=== PATIENT | female | born 1965 | race Caucasian/White ===

== ENCOUNTER 2016-12-24 05:06 | Inpatient (IN) | payer BC, OTHER ==
[2016-12-17 11:11] VITALS: BMI 23.4
--- NOTE | 2016-12-24 10:46 | HP ---
Past Medical History - Primary Care Physician PCP:: Sudhir Franks - Admission Chief Complaint: uterovaginalprolapse, menorrhagia.anemia History of Present Illness: 51 yo f with hx of prolonged menses and pelvic pain and uterovaginal prolapse admitted for vaginal hysterectomy, A.P repair.no urinary incontinence, RBA discussed with patient History Source: Patient Limitations to Obtaining History: No Limitations - Past Medical History Renal/: No: Renal Calculi (stone passed) Heme/Onc: Yes: Anemia Psych: Yes: Anxiety - Past Surgical History Hx Myomectomy: No Hx Transabdominal Cerclage: No Additional Surgical History: D&C for menorrhagia - Smoking History Smoking history: Never smoked Have you smoked in the past 12 months: No - Alcohol/Substance Use Hx Alcohol Use: No - Social History Usual Living Arrangement: Yes: With Spouse History of Recent Travel: No Home Medications - Allergies Allergies/Adverse Reactions: Allergies Allergy/AdvReac Type Severity Reaction Status Date / Time No Known Drug Allergies Allergy Verified 12/24/16 08:43 - Home Medications Home Medications: Ambulatory Orders Calcium Carbonate [Tums] 200 mg PO PRN PRN 12/17/16 Review of Systems - Review of Systems Constitutional: reports: No Symptoms Eyes: reports: No Symptoms HENT: reports: No Symptoms Neck: reports: No Symptoms Cardiovascular: reports: No Symptoms Respiratory: reports: No Symptoms Gastrointestinal: reports: No Symptoms Genitourinary: reports: Frequency, Urgency Breasts: reports: No Symptoms Reported Musculoskeletal: reports: No Symptoms Integumentary: reports: No Symptoms Neurological: reports: No Symptoms Endocrine: reports: No Symptoms Hematology/Lymphatic: reports: No Symptoms Psychiatric: reports: No Symptoms, Anxiety 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: Vital Signs Temperature 98.4 F 12/24/16 08:37 Pulse Rate 100 H 12/24/16 08:37 Respiratory Rate 16 12/24/16 08:37 Blood Pressure 131/84 12/24/16 08:37 O2 Sat by Pulse Oximetry (%) 100 12/24/16 08:35 Constitutional: Yes: Well Nourished, No Distress, Calm Eyes: Yes: WNL, Conjunctiva Clear, EOM Intact HENT: Yes: WNL, Atraumatic, Normocephalic Neck: Yes: WNL, Supple, Trachea Midline Cardiovascular: Yes: WNL, Regular Rate and Rhythm Respiratory: Yes: WNL, Regular, CTA Bilaterally Gastrointestinal: Yes: WNL ...Rectal Exam: Yes: WNL Renal/: Yes: WNL External Genitalia: Yes: Normal Internal Exam Deferred: No Vaginal Exam: Yes: Normal (cystocele) Cervix: Yes: Other (at vagiinal interetous) Uterus: Yes: Other (prolapsed, bulky) Adnexa: Not Palpable: Left, Right Breast(s): Yes: WNL Musculoskeletal: Yes: WNL Extremities: Yes: WNL Edema: No Integumentary: Yes: WNL Neurological: Yes: WNL, Alert, Oriented ...Motor Strength: WNL Psychiatric: Yes: WNL, Alert, Oriented Problem List - Problem (1) Uterovaginal prolapse Code(s): N81.4 - UTEROVAGINAL PROLAPSE, UNSPECIFIED (2) Menorrhagia Code(s): N92.0 - EXCESSIVE AND FREQUENT MENSTRUATION WITH REGULAR CYCLE Qualifiers: Menorrahagia type: with regular cycle Qualified Code(s): N92.0 - Excessive and frequent menstruation with regular cycle (3) Anemia Code(s): D64.9 - ANEMIA, UNSPECIFIED Qualifiers: Anemia type: iron deficiency Assessment/Plan vaginal hysterectomy , possible anterior, posterior repair
[2016-12-24] MEDS ORDERED: VASOPRESSIN 20 UNITS/ML VIAL IV ONE (10:55)
[2016-12-24] MEDS ORDERED: MIDAZOLAM HCL 2 MG/2 ML SINGLE DOSE VIAL ONE (11:02)
[2016-12-24] MEDS ORDERED: ROCURONIUM BROMIDE 50 MG/5 ML VIAL ONE (11:02)
[2016-12-24] MEDS ORDERED: LIDOCAINE HCL/PF 2% SDV 5ML VIAL ONE (11:02)
[2016-12-24] MEDS ORDERED: ceFAZolin SODIUM 1 GM VIAL IVPB ONE (11:23)
[2016-12-24] MEDS ORDERED: PROPOFOL 20 ML ONE (11:42)
[2016-12-24] MEDS ORDERED: NEOSTIGMINE METHYLSULFATE 0.5 MG/ML - 10 ML MDV ONE (11:44)
[2016-12-24] MEDS ORDERED: SUCCINYLCHOLINE CHLORIDE 200 MG/10 ML VIAL ONE (11:46)
[2016-12-24] MEDS ORDERED: metroNIDAZOLE 0.75% VAGINAL GEL 70 GM TUBE ONE (12:38)
[2016-12-24] MEDS ORDERED: ONDANSETRON 4 MG/2 ML VIAL IVPB PRN (12:57)
[2016-12-24] MEDS ORDERED: IBUPROFEN 800 MG/8 ML IJ IVPB PRN (12:57)
[2016-12-24] MEDS ORDERED: HYDROmorphone HCL CARPU-JECT 2 MG/1 ML DISP.SYRIN IVPUSH ONE ×4 (13:25→15:05)
[2016-12-24] MEDS ORDERED: HYDROmorphone HCL CARPU-JECT 2 MG/1 ML DISP.SYRIN ONE ×2 (13:27→15:03)
[2016-12-24] MEDS ORDERED: HYDROmorphone HCL CARPU-JECT 1 MG/1 ML DISP.SYRIN IVPUSH PRN (13:36)
[2016-12-24] MEDS: ELECTROLYTE-148 SOLN 1,000 ML IV SCH ×2 (16:14→21:10)
[2016-12-24] MEDS: CEFAZOLIN 1 GM in DEXTROSE 5%-WATER - 50 ML IVPB SCH (18:42)
[2016-12-24] MEDS: oxyCODONE HCL 5 MG TABLET PO PRN (18:46)
[2016-12-24] MEDS: IBUPROFEN 600 MG TABLET (FP) PO PRN (18:48)
[2016-12-25] MEDS: CEFAZOLIN 1 GM in DEXTROSE 5%-WATER - 50 ML IVPB SCH ×2 (01:01→10:33)
[2016-12-25] MEDS: oxyCODONE HCL 5 MG TABLET PO PRN ×4 (01:03→20:36)
[2016-12-25] MEDS: IBUPROFEN 600 MG TABLET (FP) PO PRN (01:04)
[2016-12-25] MEDS: ELECTROLYTE-148 SOLN 1,000 ML IV SCH (06:15)
[2016-12-25 06:51] LABS: MCH 21.9 pg (25.7-33.7); MCHC 30.6 g/dl (32.0-36.0); MEAN CELL VOLUME 71.4 fl (80-96); MEAN PLT VOLUME 9.6 fl (7.5-11.1); PLATELET COUNT 213 K/MM3 (134-434); RDW 17.7 % (11.6-15.6); WHITE BLOOD COUNT 12.7 K/mm3 (4.0-10.0)
--- NOTE | 2016-12-25 08:37 | PN ---
Progress Note (short form) - Note Progress Note: ANESTHESIOLOGY POST-OP CHECK 51F vaginal hysterectomy and perineoplasty under general anesthesia, POD #1. No acute complaints, pain 6/10 and tolerable. Denies N/V, tolerating PO. Not yet OOB, iyer out this am. Vital Signs Temperature 98.1 F 12/25/16 05:30 Pulse Rate 82 12/25/16 05:30 Respiratory Rate 14 12/25/16 05:30 Blood Pressure 100/57 12/25/16 05:30 O2 Sat by Pulse Oximetry (%) 99 12/24/16 21:00 Active Medications Enoxaparin Sodium (Lovenox -) 30 mg SQ DAILY SABINA Fentanyl (Sublimaze Injection -) 25 mcg IVPUSH [id number] PRN PRN Reason: PAIN Stop: 12/27/16 13:37 Hydromorphone HCl (Dilaudid Injection -) 1 mg IVPUSH [id number] PRN PRN Reason: PAIN Stop: 12/27/16 13:37 Parenteral Electrolytes (Plasma-Lyte 148 -) 1,000 mls @ 125 mls/hr IV ASDIR SABINA Last Admin: 12/25/16 06:15 Dose: 125 mls/hr Cefazolin Sodium 1 gm/ (Dextrose) 50 mls @ 100 mls/hr IVPB Q8H-IV SABINA Stop: 12/25/16 17:59 Last Admin: 12/25/16 01:01 Dose: 100 mls/hr Ibuprofen (Motrin -) 600 mg PO Q6H PRN PRN Reason: FEVER Last Admin: 12/25/16 01:04 Dose: 600 mg Ibuprofen (Caldolor Injection -) 800 mg IVPB Q6H PRN PRN Reason: FEVER Ondansetron HCl (Zofran Injection) 4 mg IVPB Q6H PRN PRN Reason: NAUSEA Oxycodone HCl (Roxicodone -) 5 mg PO Q4H PRN PRN Reason: PAIN LEVEL 1-5 Last Admin: 12/25/16 08:24 Dose: 5 mg Gen: awake, alert No apparent anesthesia complications. Pain well controlled. Continue management as per primary team.
[2016-12-25] MEDS ORDERED: ENOXAPARIN NA (PORCINE) 30 MG/0.3 ML DISP.SYRIN SQ SCH (10:00)
--- NOTE | 2016-12-25 12:01 | OP ---
DATE OF OPERATION: 12/24/2016 PREOPERATIVE DIAGNOSES: Uterovaginal prolapse, menorrhagia, and anemia. POSTOPERATIVE DIAGNOSES: Uterovaginal prolapse, menorrhagia, and anemia. PROCEDURE: Vaginal hysterectomy, anterior and posterior repair, and perineoplasty. SURGEON: Sudhir Franks MD ASSEMBLER SURGICAL GARMENT: Hiro Torrez MD ANESTHESIA: General. ESTIMATED BLOOD LOSS: 150 mL DESCRIPTION OF OPERATION: The patient was taken to the operating room, had adequate general anesthesia. In dorsal lithotomy position, examination under anesthesia revealed the introitus was gaping. There was a cystocele and rectocele and then second-degree uterine prolapse. Uterus was slightly prominent. Adnexa: No masses were palpable. With a weighted speculum in the vagina, anterior and posterior lip of the cervix was grasped with 2 single-tooth tenaculums. Anterior vaginal mucosa and posterior was infiltrated with a diluted solution of vasopressin. A circumferential incision was made around the cervix. Anterior vaginal mucosa was dissected with blunt and sharp dissection with Metzenbaum scissors, and the bladder was from the uterus and pushed up. The posterior vaginal mucosa was from the cervix, and cul-de-sac was entered with Mccoy scissors. A weighted speculum was advanced into the cul-de-sac. Bladder was lifted. Uterosacral ligament was identified bilaterally, clamped with Bernarda clamp, cut, and the clamp replaced with 0 Vicryl suture bilaterally. These clamps were held. The bladder was dissected further, and anterior peritoneum was opened and then entered. Bladder was lifted and uterine artery was identified bilaterally, clamped, and cut, and the clamp replaced with 0 Vicryl suture bilaterally. Parametrial area was cauterized with LigaSure cautery and cut until the upper ligament was reached. Upper ligament was grasped with the bipolar LigaSure cautery, cauterized, and cut bilaterally, and the uterus was removed. The right and left tube were removed by cauterizing along the mesosalpinx, and both tubes were removed. Both ovaries appeared to be normal. The peritoneum was closed with a pursestring of 0 Vicryl suture, and anterior repair started with infiltrating anterior vaginal mucosa. Both vaginal mucosa was grasped with an Allis clamp and then undermined with Metzenbaum scissors. The bladder was from the vaginal mucosa. Cystocele was repaired with interrupted suture of 3-0 Vicryl. The excess vaginal mucosa was cut and the vaginal mucosa was brought together with interrupted suture of 3-0 Vicryl. Uterosacral ligaments were fixed to the vaginal angle with 0 Vicryl ligature suture. The posterior repair started by removing the excess perineal skin, and the posterior vaginal mucosa was undermined with Metzenbaum scissors and from the rectum. Excess vaginal mucosa was cut, and the rectocele repair with interrupted suture of 3-0 Vicryl. The muscles were brought together with interrupted suture of 0 Vicryl. Perineoplasty was done by approximating the perineal muscle, and the vaginal mucosa and posterior perineum were repaired in episiotomy-like fashion. The skin was closed with 3-0 Vicryl interrupted suture. The vagina was packed with Iodoform gauze. No active bleeding was seen. The Woodson was inserted. Clear urine. Patient tolerated the procedure well, left the OR in good condition. Razia [id number]
--- NOTE | 2016-12-25 22:46 | PN ---
Progress Note (short form) - Note Progress Note: pod 1 s/p vag .hysterectomy, ap repair sitting on chair, doing well no dizziness, no vaginal bleeding CBC, BMP 12/25/16 05:45 Last Vital Signs Temp Pulse Resp BP Pulse Ox 99.1 F 102 H 19 138/70 99 12/25/16 18:00 12/25/16 18:00 12/25/16 18:00 12/25/16 18:00 12/24/16 21:00 abdomen soft , no distension, no cva vagina no bleeding, vaginal packing removed no calf tenderness pod 1 anemia, asymptomatic afebrile plan observation, repeat cbc in am, monitor out put Problem List - Problems (1) Uterovaginal prolapse Code(s): N81.4 - UTEROVAGINAL PROLAPSE, UNSPECIFIED (2) Menorrhagia Code(s): N92.0 - EXCESSIVE AND FREQUENT MENSTRUATION WITH REGULAR CYCLE Qualifiers: Menorrahagia type: with regular cycle Qualified Code(s): N92.0 - Excessive and frequent menstruation with regular cycle (3) Anemia Code(s): D64.9 - ANEMIA, UNSPECIFIED Qualifiers: Anemia type: iron deficiency
[2016-12-26 07:22] LABS: BASOPHIL 0.4 % (0-2.0); EOSINOPHIL 1.3 % (0-4.5); MCH 22.8 pg (25.7-33.7); MEAN CELL VOLUME 71.1 fl (80-96); MEAN PLT VOLUME 9.2 fl (7.5-11.1); NEUTROPHILS 71.1 % (42.8-82.8); PLATELET COUNT 210 K/MM3 (134-434); WHITE BLOOD COUNT 9.2 K/mm3 (4.0-10.0)
--- NOTE | 2016-12-26 08:34 | DS ---
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: Vital Signs Temperature 99.1 F 12/26/16 06:10 Pulse Rate 99 H 12/26/16 06:10 Respiratory Rate 19 12/26/16 06:10 Blood Pressure 101/61 12/26/16 06:10 O2 Sat by Pulse Oximetry (%) 99 12/24/16 21:00 Constitutional: Yes: Well Nourished, No Distress, Calm Eyes: Yes: WNL, Conjunctiva Clear, EOM Intact HENT: Yes: WNL, Atraumatic, Normocephalic Neck: Yes: WNL, Supple, Trachea Midline Cardiovascular: Yes: WNL, Regular Rate and Rhythm Respiratory: Yes: WNL, Regular, CTA Bilaterally Gastrointestinal: Yes: WNL ...Rectal Exam: Yes: WNL Renal/: Yes: WNL Breast(s): Yes: WNL Musculoskeletal: Yes: WNL Extremities: Yes: WNL Integumentary: Yes: WNL Wound/Incision: Yes: Clean/Dry Neurological: Yes: WNL, Alert, Oriented ...Motor Strength: WNL Psychiatric: Yes: WNL, Alert, Oriented Labs: CBC, BMP 12/26/16 06:05 Discharge Summary Reason For Visit: UTEROVAGINAL PROLAPSE/PELVIC AND PERINEAL Current Active Problems Anemia (Acute) Menorrhagia (Acute) Uterovaginal prolapse (Acute) Procedures: Principal: vaginal hysterectomy, cystorectocele repair, pernioplasty Condition: Good - Instructions Diet, Activity, Other Instructions: regular diet, follow up office 2 weeks, if pain, bleeding, fever call MD Referrals: Sudhir Franks MD [Staff Physician] - Disposition: HOME - Home Medications Comprehensive Discharge Medication List: Ambulatory Orders Calcium Carbonate [Tums] 200 mg PO PRN PRN 12/17/16 Ibuprofen [Motrin -] 600 mg PO QID #28 tablet 12/26/16
[2016-12-26] MEDS ORDERED: BISACODYL 5 MG TABLET.DR (FP) PO ONE (08:45)
[2016-12-26 09:00] VITALS: BP 113/60; PULSE 94; TEMP 98.6
--- NOTE | 2016-12-26 15:21 | PATH ---
Surgical Pathology Report Patient Name: MATTY ROONEY [facility]. Rec. #: [id number] /Age/Gender: 1965 (Age: 51) / F Account: [id number] Location: [address] [place] [address]/[facility] Taken: 12/24/2016 Received: 12/24/2016 Reported: 12/26/2016 Physicians: Sudhir Franks M.D. Specimen(s) Received A: UTERUS, CERVIX RIGHT AND LEFT FALLOPIAN TUBE B: VAGINAL MUCOSA C: POSTERIOR PERINIUM Clinical History Uterovaginal prolapse/pelvic and perineal Final Diagnosis A. UTERUS AND CERVIX WITH BILATERAL FALLOPIAN TUBES, HYSTERECTOMY AND BILATERAL SALPINGECTOMY: UTERUS AND CERVIX, 95 GRAMS, WITH SECRETORY ENDOMETRIUM, FOCAL SUPERFICIAL ADENOMYOSIS, AND CERVIX WITH CHRONIC INFLAMMATION. BENIGN BILATERAL FALLOPIAN TUBES PRESENT. B. VAGINAL MUCOSA, EXCISION: BENIGN SQUAMOUS MUCOSA. C. POSTERIOR PERINEUM, EXCISION: BENIGN SQUAMOUS MUCOSA WITH FOCAL CHRONIC INFLAMMATION. Electronically Signed Albert Churchill M.D. Gross Description A. Received in formalin labeled "uterus, cervix, left and right fallopian tube," is a 95 g uterus with an attached cervix and an attached right fallopian tube. The left fallopian tube is separately received within the same container. The specimen measures 9 cm from superior to inferior, 4.5 cm from left to right and 4.2 cm from anterior to posterior. The serosa is bedolla-pink and smooth. The attached cervix measures 3 cm in length and 2.5 cm in diameter. The ectocervix is pink-bedolla, smooth and glistening. The endocervix is unremarkable. The endometrial cavity measures 4.4 cm in length and 3 cm from cornu to cornu. The endometrium is bedolla-red and averages 0.2 cm in thickness. The myometrium is bedolla and averages 2 cm in thickness. No intramural nodules are identified. The attached right fallopian tube measures 5 cm in length. The outer surface is huerta purple and smooth with a 0.7 cm in greatest dimension paratubal cyst attached to the fimbria. Sectioning of the fallopian tube reveals an unremarkable lumen. The separately received left fallopian tube measures 2.3 cm in length. The outer surface is huerta purple and smooth. Sectioning reveals an unremarkable lumen. Business Analytics Analyst sections are submitted in 10 cassettes as follows: 1-anterior cervix; 2-posterior cervix; 7-9-[id number] endomyometrium; 6-4-vbupwipsx endomyometrium; 7-right fallopian tube fimbria; 8-cross sections of right fallopian tube; 9-left fallopian tube fimbria; 10-cross sections of left fallopian tube. B. Received in formalin labeled "vaginal mucosa," is a 4.5 x 4.3 x 0.3 cm aggregate of 2 bedolla, irregular portions of soft tissue, consistent with vaginal mucosa. No discrete lesions are identified. Business Analytics Analyst sections are submitted in one cassette. C. Received in formalin labeled "posterior perineum," is a 3.0 x 2.0 x 0.2 cm aggregate of 2 bedolla, irregular portion of soft tissue. No discrete lesions are identified. Business Analytics Analyst sections are submitted in one cassette. 12/25/2016 [facility]12/25/2016
== END 2016-12-26 09:02 | disposition home or self-care (01) | DRG 743 ==
LOC: JSAMEDAYSX 05:06 → J6S 15:57
PROVIDERS: ADMIT Obstetrics & Gynecology; ATTEND Obstetrics & Gynecology
PROC: 0UT77ZZ Resection of Bilateral Fallopian Tubes, Via Natural or Artificial Opening (ICD-10-PCS; 2016-12-24)
PROC: 0KQM0ZZ Repair Perineum Muscle, Open Approach (ICD-10-PCS; 2016-12-24)
PROC: 0JQC0ZZ Repair Pelvic Region Subcutaneous Tissue and Fascia, Open Approach (ICD-10-PCS; 2016-12-24)
PROC: 0JQC0ZZ Repair Pelvic Region Subcutaneous Tissue and Fascia, Open Approach (ICD-10-PCS; 2016-12-24)
PROC: 0UT97ZZ Resection of Uterus, Via Natural or Artificial Opening (ICD-10-PCS; principal; 2016-12-24 10:00)
PROC: 0UTC7ZZ Resection of Cervix, Via Natural or Artificial Opening (ICD-10-PCS; 2016-12-24 10:00)
DX: N81.2 Incomplete uterovaginal prolapse (principal); N92.0 Excessive and frequent menstruation with regular cycle; D50.9 Iron deficiency anemia, unspecified; F41.9 Anxiety disorder, unspecified; Z87.442 Personal history of urinary calculi
CPT/HCPCS: 36415; 84703; 85025; 85027; 88302-TC; 88305-TC; 94010; 94760